=== PATIENT | male | born 1955 | race Two or more races ===

== ENCOUNTER 2020-01-04 06:53 | Day surgery (SDC) | payer OTHER ==
[~2020-01-04] VITALS: Ht 170.2 cm; Wt 68.0 kg
[~2020-01-04 06:53] MED LIST: ATEN-60 PO; EZET10TA24 PO; LORA-622 PO; SIMV-8 PO
[2020-01-04] MEDS ORDERED: LIDOCAINE 2%HCL (LOCAL ANESTH.) INJ 20ML MDV ONE (07:43)
[2020-01-04] MEDS ORDERED: IODIXANOL 320MG/ML 100ML BTL IV ONE (07:44)
[2020-01-04] MEDS ORDERED: ANGIOMAX 250 MG VIAL IV ONE (08:00)
[2020-01-04] MEDS ORDERED: SODIUM CHL 0.9% 0 ML ONE (08:01)
[2020-01-04] MEDS ORDERED: fentaNYL CITRATE 100 MCG/2 ML VL ONE (08:01)
[2020-01-04] MEDS ORDERED: MIDAZOLAM HCL 1MG/1ML-2 ML VIAL ONE (08:01)
[2020-01-04] MEDS ORDERED: VERAPAMIL 2.5MG/ML INJ 2ML VIAL IV ONE (08:01)
[2020-01-04] MEDS ORDERED: NITROGLYCERIN 5MG/ML 10ML VIAL IV ONE (08:05)
[2020-01-04] MEDS ORDERED: HEPARIN SODIUM (PORCINE) 5000 UNITS/ML 1ML VIAL ONE (08:24)
[2020-01-04] MEDS ORDERED: SODIUM CHL 0.9% 500 ML IV ONE (09:30)
[2020-01-04] MEDS ORDERED: HYDROcodone-ACET 5/325MG TAB PO PRN (09:30)
[2020-01-04] MEDS ORDERED: ACETAMINOPHEN 500 MG TAB PO PRN (09:30)
[2020-01-04] MEDS ORDERED: ONDANSETRON HCL 4 MG/2 ML VIAL IV PRN (09:30)
== END 2020-01-04 11:26 | disposition home or self-care (01) ==
LOC: CATH 06:53
PROVIDERS: ATTEND Internal Medicine
DX: R94.39 Abnormal result of other cardiovascular function study (principal); I25.9 Chronic ischemic heart disease, unspecified; J30.1 Allergic rhinitis due to pollen; Z98.890 Other specified postprocedural states
CPT/HCPCS: 93458; C1769; C1894; J1644; J2250; J3010; J3490; J7030; Q9967; 99152